=== PATIENT | female | born 1990 | race African-American/Black ===

== ENCOUNTER 2017-02-05 13:31 | Inpatient (IN) ==
[2017-02-05] MEDS ORDERED: MEPERIDINE 50 MG/1 ML VIAL IV PRN (14:27)
[2017-02-05] MEDS ORDERED: ONDANSETRON 4 MG/2 ML VIAL IV PRN (14:27)
[2017-02-05] MEDS ORDERED: OXYTOCIN/LR 20 UNIT/1,000 ML BAG IV SCH (14:30)
[2017-02-05] MEDS ORDERED: LACTATED RINGERS 1,000 ML IV SCH (14:30)
[2017-02-05] MEDS ORDERED: AMPICILLIN INJ 2,000 MG in SODIUM CHLORIDE 0.9% 100 ML IV ONE (14:39)
[2017-02-05 14:43] LABS: Basophils % 0.2 % (0.0-0.8); Eosinophils % 0.3 % (0.00-10.9); Hematocrit 36.6 VOL% (35.7-47.0); Hemoglobin 11.5 GM/DL (12.0-16.0); Immature Granulocytes % 5.9 %; Immature Granulocytes Absolute 0.76 #; Lymphocytes # 1.2 10*3/uL (1.4-4.0); Lymphocytes % 9.6 % (21.3-54.2); Mean Corpuscular HGB Conc 31.4 GM/DL (32-36); Mean Corpuscular Hemoglobin 31 PG (27-34); Mean Corpuscular Volume 97.9 FL (87-102); Mean Platelet Volume 10.6 FL (9.6-12.0); Monocytes % 7.9 % (1.7-12.7); Neutrophils # 9.8 10*3/uL (1.4-7.4); Neutrophils % 76.1 % (38.7-73.9); Platelet Count 176 T/CUMM (130-400); Red Blood Count 3.74 MC/CUMM (3.8-5.5); Red Cell Distribution Width 13.1 % (9.3-17.3); White Blood Count 12.9 T/CUMM (4-12)
[2017-02-05] MEDS ORDERED: fentaNYL 2 MCG/ROPIV 0.2% EPID 150 ML EPIDURAL SCH ×2 (14:50→19:16)
[2017-02-05] MEDS ORDERED: hydrOXYzine HCL 25 MG/1 ML VIAL IM PRN ×2 (14:50→19:16)
[2017-02-05] MEDS ORDERED: ePHEDrine 50 MG/ML AMP IV PRN ×2 (14:50→19:16)
[2017-02-05] MEDS ORDERED: diphenhydrAMINE 50 MG/1 ML VIAL IV PRN ×3 (14:50→19:16)
[2017-02-05] MEDS ORDERED: FAMOTIDINE 20 MG/2 ML VIAL IV ONE (14:50)
[2017-02-05] MEDS ORDERED: CITRIC ACID/SODIUM CITRATE 30 ML UDCUP PO ONE (14:50)
[2017-02-05 16:06] LABS: Lymphocytes 13 % (20-55); Platelet Estimate Normal; Segmented Neutrophils 83 % (50-85); Total Cells Counted 100
--- NOTE | 2017-02-05 17:40 | OB/GYN History & Physical ---
History of Present Illness Chief complaint: here for pitocin augmentation of labor. History of present illness: Ms. Tai is a 26 year old female that presents for augmentation of labor. Records available and reviewed. H&P is current, up to date, and presently on chart. Home Medications Medication Instructions Recorded Confirmed Type Multivitamin () [ 1 tablet PO DAILY 02/05/17 02/05/17 History Vitamin] Allergies Allergy/AdvReac Type Severity Reaction Status Date / Time No Known Allergies Allergy Verified 02/05/17 14:27 Medical,Surgical,& Family Hx - Family History Family History: Reports;: Family Hypertension (gf) Denies;: Family Anesthesia Reaction, Family Cancer, Family Diabetes, Family Heart Disease, Family Hematology, Family Psychiatric Problems, Family Stroke - Social History Smoking Status: Never smoker Frequency of Alcohol Use: None Type of Drug Use: None Results - Labs CBC & BMP: 02/05/17 14:36
--- NOTE | 2017-02-05 17:45 | OB/GYN Progress Note ---
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 States feels "some contractions" O: FHTs @ 140s with spontaneous variability, occasional variable deceleration noted, not repetitive UCs every 3-4 min/ 50-60 sec/ mild SVE 5 cm/ 80%/ -3 station Pitocin @ 8 mu/min A: IUP @ 40.1 wks, GBS positive, Category I FHR tracing, Pitocin augmentation of labor P: Continue with present management plan. Reposition for comfort. Offer analgesics. Questions answered to desired level of satisfaction. Dr. Baker aware of patient and plan of care and mutually agrees. Results - Labs CBC & BMP: 02/05/17 14:36
[2017-02-05] MEDS: AMPICILLIN INJ 1,000 MG in SODIUM CHLORIDE 0.9% 100 ML IV SCH ×2 (18:56→23:00)
[2017-02-05] MEDS ORDERED: PROMETHAZINE 25 MG/1 ML VIAL IM PRN (19:16)
[2017-02-05 21:16] LABS: Apearance,Urine CLEAR (Clear); Bilirubin,Urine Negative (Negative); Blood, Urine Negative (Negative); Glucose,Urine (UA) Negative (Negative); Ketones,Urine 5 mg/dL (Negative); Nitrite,Urine Negative (Negative); Protein,Urine Negative; RBC,Urine 1 /HPF (0-4); Urine Color Yellow (Yellow); Urine Specific Gravity 1.008 (1.001-1.035); Urine Urobilinogen < 2.0 EU/DL (0.2-1.0)
[2017-02-06 02:50] LABS: Cord Arterial Blood HCO3 19.9 MMOL/L
[2017-02-06 02:51] LABS: Cord Venous Blood HCO3 23.6 MMOL/L; Cord Venous Blood PCO2 45.3 MMHG; Cord Venous Blood PO2 22.5 MMHG
--- NOTE | 2017-02-06 02:52 | OB/GYN Progress Note ---
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 Anticipate vaginal delivery Exam TELEVISION ANNOUNCER - Constitutional Vitals: Vital Signs Temp Pulse Resp BP 02/06/17 00:00 97.6 F 85 18 95/60 02/05/17 20:00 97.8 F 78 18 99/58 Results - Labs CBC & BMP: 02/05/17 14:36
--- NOTE | 2017-02-06 02:58 | Operative Note ---
Date of procedure: 01/09/17 Pre-op diagnosis: IUP @ 40.1 wks, GBS Positive, Labor, Post Dates Post-op diagnosis: other () Procedure: Patient received in dorsal lithotomy position, prepped and draped. At 0218, Spontaneous delivery of head noted in direct OP position under an epidural anesthetic. Anterior the posterior shoulder delivered easily without difficulty. delivered in usual fashion and secured. Mouth and nose bulb suctioned with good tone and cry noted. Cord doubly clamped and cut. Cord gasses and cord blood obtained. Female dried, placed in radiant warmer and attended per nursery nurses. At 0220, spontaneous delivery of placenta via Saleem position- intact, normal cord insertion, 3 vessel cord noted, small calcifications present. Hemostasis maintained with fundal massage, bimanual compression, and Pitocin 20 units in 1000cc of LR. Uterine sweep with sponge performed- several small clots removed. Uterus firm. In and out cath performed using sterile technique, approximately 150 cc of clear yellow urine noted. First degree vaginal laceration noted and repaired with 3-0 Vicryl undyed x 2. Female with Apgars 9 and 9 weighing 7 pounds 2 ounces and mother will are stable. Mother desires to bottle feed. Anesthesia: epidural Surgeon / Physician: Etta Light Estimated blood loss: other (200) Specimens: other (placenta to pathology) Condition: stable Disposition: floor Results - Labs CBC & BMP: 02/05/17 14:36 Discharge Plan - Discharge Medications No Action Multivitamin () [ Vitamin] 1 tablet PO DAILY - Follow Up or Referral - Forms/Instructions
[2017-02-06] MEDS ORDERED: ACETAMINOPHEN 325 MG TABLET PO PRN (03:00)
[2017-02-06] MEDS ORDERED: LANOLIN 50% CREAM 0.3 OZ TUBE TOP PRN (03:00)
[2017-02-06] MEDS ORDERED: WITCH HAZEL PADS 100/JAR TOP PRN (03:00)
[2017-02-06] MEDS ORDERED: RHO(D) IMMUNE GLOBULIN 300 MCG SYRINGE IM ONE (03:00)
[2017-02-06] MEDS ORDERED: DIPH/TET/ACEL PERT BOOSTER VACCINE 0.5 ML VIAL IM ONE (03:00)
[2017-02-06] MEDS ORDERED: HYDROCORTISONE 2.5% RECTAL CREAM 30 GM TUBE TOP PRN (03:00)
[2017-02-06] MEDS ORDERED: OXYTOCIN/LR 20 UNIT/1,000 ML BAG IV ONE (03:00)
[2017-02-06] MEDS ORDERED: BISACODYL 10 MG SUPP RECTAL PRN (03:00)
[2017-02-06] MEDS ORDERED: oxyCODONE/ACETAMINOPHEN 5-325 MG TABLET PO PRN (03:00)
[2017-02-06] MEDS ORDERED: BENZOCAINE 20%/MENTHOL 0.5% SPRAY 56 GM CAN TOP PRN (03:00)
[2017-02-06] MEDS ORDERED: MEASLES/MUMPS/RUBELLA VACCINE 0.5 ML VIAL SUBCUT ONE (03:00)
[2017-02-06 06:07] LABS: Basophils % 0.2 % (0.0-0.8); Eosinophils % 0.2 % (0.00-10.9); Hematocrit 35.2 VOL% (35.7-47.0); Hemoglobin 11.3 GM/DL (12.0-16.0); Immature Granulocytes % 2.4 %; Immature Granulocytes Absolute 0.44 #; Lymphocytes # 0.9 10*3/uL (1.4-4.0); Lymphocytes % 4.8 % (21.3-54.2); Mean Corpuscular HGB Conc 32.1 GM/DL (32-36); Mean Corpuscular Hemoglobin 31 PG (27-34); Mean Corpuscular Volume 96.4 FL (87-102); Mean Platelet Volume 11.5 FL (9.6-12.0); Monocytes # 2.3 10*3/uL (0.11-0.8); Monocytes % 12.5 % (1.7-12.7); Neutrophils # 14.7 10*3/uL (1.4-7.4); Neutrophils % 79.9 % (38.7-73.9); Platelet Count 166 T/CUMM (130-400); Red Blood Count 3.65 MC/CUMM (3.8-5.5); Red Cell Distribution Width 13.2 % (9.3-17.3); White Blood Count 18.4 T/CUMM (4-12)
[2017-02-06] MEDS: IBUPROFEN 800 MG TABLET PO PRN (06:24)
[2017-02-06 06:25] LABS: Band Neutrophils 1 % (0-10); Eosinophils 1 % (0-10); Hypochromasia 1+; Lymphocytes 7 % (20-55); Platelet Estimate Normal; Segmented Neutrophils 79 % (50-85); Total Cells Counted 100
[2017-02-06] MEDS: FERROUS SULFATE 325 MG TABLET PO SCH ×3 (09:18→21:30)
[2017-02-06] MEDS: DOCUSATE SODIUM 100 MG CAPSULE PO SCH ×2 (09:18→21:30)
[2017-02-07] MEDS: IBUPROFEN 800 MG TABLET PO PRN ×2 (00:15→20:30)
[2017-02-07] MEDS: oxyCODONE/ACETAMINOPHEN 5-325 MG TABLET PO PRN (00:15)
[2017-02-07 07:49] LABS: Basophils # 0.1 10*3/uL (0.0-0.2); Basophils % 0.3 % (0.0-0.8); Eosinophils # 0.2 10*3/uL (0.0-0.87); Eosinophils % 1.5 % (0.00-10.9); Hematocrit 32.4 VOL% (35.7-47.0); Hemoglobin 10.3 GM/DL (12.0-16.0); Immature Granulocytes % 4.7 %; Immature Granulocytes Absolute 0.73 #; Lymphocytes # 1.9 10*3/uL (1.4-4.0); Lymphocytes % 12.1 % (21.3-54.2); Mean Corpuscular HGB Conc 31.8 GM/DL (32-36); Mean Corpuscular Hemoglobin 31 PG (27-34); Mean Corpuscular Volume 96.4 FL (87-102); Mean Platelet Volume 10.9 FL (9.6-12.0); Monocytes # 1.6 10*3/uL (0.11-0.8); Monocytes % 10.1 % (1.7-12.7); Neutrophils # 11.1 10*3/uL (1.4-7.4); Neutrophils % 71.3 % (38.7-73.9); Platelet Count 166 T/CUMM (130-400); Red Blood Count 3.36 MC/CUMM (3.8-5.5); White Blood Count 15.6 T/CUMM (4-12)
[2017-02-07 08:11] LABS: Band Neutrophils 3 % (0-10); Eosinophils 1 % (0-10); Hypochromasia 1+; Lymphocytes 16 % (20-55); Platelet Estimate Adequate; Segmented Neutrophils 75 % (50-85); Total Cells Counted 100
--- NOTE | 2017-02-07 09:18 | OB/GYN Progress Note ---
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 Denies any problems. The Mirena for her control method of choice. Exam SOAKERS SUPERVISOR - Constitutional Vitals: Vital Signs Temp Pulse Resp BP Pulse Ox 02/07/17 08:00 18 02/07/17 07:21 97.6 F 62 18 107/66 98 02/07/17 04:00 98.6 F 59 L 18 124/61 98 02/07/17 02:00 18 02/07/17 00:00 99.0 F 91 H 20 108/66 98 02/06/17 20:00 98.9 F 83 18 113/55 98 02/06/17 15:24 98.4 F 78 20 90/60 98 02/06/17 11:46 98.5 F 86 18 83/51 99 General appearance: normal weight, no acute distress - Antepartum / Post Post Exam Abdomen obstetrics: Present: bowel sounds normal Vagina: Present: normal moisture (intact, no edema noted, scant rubra noted on perineal pain) Uterus exam: Present: enlarged (firm, midline, 2 fingerbreadths below the umbilicus) Anus/Rectum: Present: normal perianal skin - Head Head exam: Present: normal inspection - ENT ENT exam: Present: normal exam, normal external ear exam - Neck Neck exam: Present: normal inspection, lymphadenopathy - Respiratory Respiratory exam: Present: clear to auscultation bilaterally - Breast Menstruation: other (scant rubra noted on a perineal pad no clots visualized) - Cardiovascular Cardiovascular exam: Present: regular rate and rhythm - GI/Abdominal GI/Abdominal exam: Present: normal bowel sounds - Extremities Exam Extremities exam: Present: normal inspection, normal capillary refill, full ROM - Back Exam Back exam: Present: normal inspection - Neurological Exam Neurological exam: Present: alert, oriented X3, normal gait - Psychiatric Psychiatric exam: Present: normal affect, normal mood - Skin Skin exam: Present: normal color, warm, dry Results - Labs CBC & BMP: 02/07/17 07:41 Labs: Laboratory Tests 02/05/17 02/05/17 02/05/17 14:36 14:36 20:25 WBC 12.9 H RBC 3.74 L Hgb 11.5 L Hct 36.6 MCV 97.9 MCH 31 MCHC 31.4 L RDW 13.1 Plt Count 176 MPV 10.6 Neut % (Auto) 76.1 H Lymph % (Auto) 9.6 L [place] % (Auto) 7.9 Eos % (Auto) 0.3 Baso % (Auto) 0.2 Neut # (Auto) 9.8 H Lymph # (Auto) 1.2 L [place] # (Auto) 1.0 H Eos # (Auto) 0.0 Baso # (Auto) 0.0 Total Counted 100 Immature Gran % 5.9 Nucleated RBC % 0.0 Immature Gran # 0.76 Segmented Neutrophils 83 Band Neutrophils Lymphocytes 13 L Monocytes 4 Eosinophils Nucleated RBCs # 0.00 Platelet Estimate Normal Hypochromasia Morphology Comment Cord ABG pH Cord ABG pCO2 Cord ABG pO2 Cord ABG HCO3 Cord ABG Total CO2 Cord ABG Base Excess Cord VBG pH Cord VBG pCO2 Cord VBG pO2 Cord VBG HCO3 Cord VBG Total CO2 Cord VBG Base Excess Urine Color Yellow Urine Appearance Clear Urine pH 7.0 Ur Specific [place] 1.008 Urine Protein Negative Urine Glucose (UA) Negative Urine Ketones 5 Urine Blood Negative Urine Nitrate Negative Urine Bilirubin Negative Urine Urobilinogen < 2.0 H Urine Leukocytes Negative Urine RBC 1 Ur Culture Indicated? Not indicated Blood Type O POSITIVE Antibody Screen Negative 02/06/17 02/06/17 02/06/17 02:10 02:10 05:54 WBC 18.4 H D RBC 3.65 L Hgb 11.3 L Hct 35.2 L MCV 96.4 MCH 31 MCHC 32.1 RDW 13.2 Plt Count 166 MPV 11.5 Neut % (Auto) 79.9 H Lymph % (Auto) 4.8 L [place] % (Auto) 12.5 Eos % (Auto) 0.2 Baso % (Auto) 0.2 Neut # (Auto) 14.7 H Lymph # (Auto) 0.9 L [place] # (Auto) 2.3 H Eos # (Auto) 0.0 Baso # (Auto) 0.0 Total Counted 100 Immature Gran % 2.4 Nucleated RBC % 0.0 Immature Gran # 0.44 Segmented Neutrophils 79 Band Neutrophils 1 Lymphocytes 7 L Monocytes 12 Eosinophils 1 Nucleated RBCs # 0.00 Platelet Estimate Normal Hypochromasia 1+ Morphology Comment Cord ABG pH 7.245 Cord ABG pCO2 60.1 Cord ABG pO2 13.6 Cord ABG HCO3 19.9 Cord ABG Total CO2 23.4 Cord ABG Base Excess -3.1 Cord VBG pH 7.334 Cord VBG pCO2 45.3 Cord VBG pO2 22.5 Cord VBG HCO3 23.6 Cord VBG Total CO2 25.0 Cord VBG Base Excess -2.5 Urine Color Urine Appearance Urine pH Ur Specific [place] Urine Protein Urine Glucose (UA) Urine Ketones Urine Blood Urine Nitrate Urine Bilirubin Urine Urobilinogen Urine Leukocytes Urine RBC Ur Culture Indicated? Blood Type Antibody Screen 02/07/17 07:41 WBC 15.6 H RBC 3.36 L Hgb 10.3 L Hct 32.4 L MCV 96.4 MCH 31 MCHC 31.8 L RDW 13.0 Plt Count 166 MPV 10.9 Neut % (Auto) 71.3 Lymph % (Auto) 12.1 L [place] % (Auto) 10.1 Eos % (Auto) 1.5 Baso % (Auto) 0.3 Neut # (Auto) 11.1 H Lymph # (Auto) 1.9 [place] # (Auto) 1.6 H Eos # (Auto) 0.2 Baso # (Auto) 0.1 Total Counted 100 Immature Gran % 4.7 Nucleated RBC % 0.0 Immature Gran # 0.73 Segmented Neutrophils 75 Band Neutrophils 3 Lymphocytes 16 L Monocytes 5 Eosinophils 1 Nucleated RBCs # 0.00 Platelet Estimate Adequate Hypochromasia 1+ Morphology Comment Cord ABG pH Cord ABG pCO2 Cord ABG pO2 Cord ABG HCO3 Cord ABG Total CO2 Cord ABG Base Excess Cord VBG pH Cord VBG pCO2 Cord VBG pO2 Cord VBG HCO3 Cord VBG Total CO2 Cord VBG Base Excess Urine Color Urine Appearance Urine pH Ur Specific [place] Urine Protein Urine Glucose (UA) Urine Ketones Urine Blood Urine Nitrate Urine Bilirubin Urine Urobilinogen Urine Leukocytes Urine RBC Ur Culture Indicated? Blood Type Antibody Screen
[2017-02-07] MEDS: FERROUS SULFATE 325 MG TABLET PO SCH ×3 (09:30→21:00)
[2017-02-07] MEDS: DOCUSATE SODIUM 100 MG CAPSULE PO SCH ×2 (09:30→21:00)
--- NOTE | 2017-02-07 11:47 | Pathology Report from [facility] ---
ACCESSION # : [id number] PATIENT NAME : Deborah Tai ORDERING DR : PAZ ROLDAN DO CLINICAL HX: IUP at 40 weeks POST-OP DX: Same SPECIMEN INFO: Placenta GROSS DESCRIPTION: The specimen is received fresh labeled with the patient's name Deborah Tai and "PLACENTA" consists of a 324 gram placenta which measures 16.0 x 15.5 x 1.8 cm. The membranes are pink martinez and translucent. The umbilical cord measure 17.0 cm, contains three vessels and is centrally inserted. The surface is blue melendez and intact. The maternal surface displays intact red melendez cotyledons with no abnormalities appreciated upon sectioning. Sections submitted A- membranes and cord, B- and maternal surfaces. DIAGNOSIS FOR DEBORAH TAI: PLACENTA, MEMBRANES, UMBILICAL CORD: Focal placental infarction, mild intervillous blood. Tri-vessel umbilical cord. Membranes with focal chronic inflammation and attached blood. SERVICE DATE: 02/06/2017 REPORT DATE: 02/07/2017 PATHOLOGIST: Fallon Hernandez M.D. [facility]ENTER[facility]i
--- NOTE | 2017-02-08 04:23 | Discharge Summary ---
Hospital Course - Hospital Course Hospital Course: Patient is a 26-year-old that was admitted for spontaneous labor and augmented with Pitocin. Labor progressed on an epidural anesthetic at 40.1 weeks gestation. She did receive ampicillin during labor for treatment of group beta strep. She proceeded to deliver a female infant with Apgars 9 and 9 weighing 7 lbs. 2 oz. Patient did experience a first degree vaginal laceration that was repair under an epidural anesthetic. Patient is bottlefeeding, she is stable, and she is being discharged home today. Baby is being discharged home today as well. Diagnosis - Discharge Diagnosis (1) Anemia Status: Acute (2) Normal spontaneous vaginal delivery Status: Resolved Specialty Discharge - Follow Up or Referrals Discharge Plan - Discharge Data Disposition: Home Health [facility] [place] Read Condition at Discharge: Stable Discharge Diet: advance to your usual diet Activity: resume usual activities as tolerated Hygiene: may shower Weight Bearing at Discharge: full weight bearing Driving: not for (2 weeks) Contact your physician if you experience:: fever over 101, Difficulty voiding, Redness or swelling, Nausea/Vomiting, Shortness of breath, Bleeding, pain uncontrolled by pain medications - Discharge Medications New Ferrous Sulfate Tab [Feosol Original Tab] 325 mg PO TID #90 tablet Ibuprofen Tab [Motrin Tab] 800 mg PO Q8H PRN #90 tablet PRN Reason: Pain Moderate (4-7) No Action Multivitamin () [ Vitamin] 1 tablet PO DAILY - Follow Up or Referral Follow Up: Etta Light CFNP [Advanced Practice Nurse] - 2 Weeks - Forms/Instructions Instructions: Perineal Care (DC), Vaginal Delivery (DC), Bleeding (DC) Exam - Constitutional Vitals: Period Temp Pulse Resp BP Sys/Vazquez Pulse Ox Last 24 Hr 97.6 F-98.7 F 57-91 18-18 99-114/55-66 98-99 General appearance: no acute distress - Head Head exam: Present: normal inspection - Eye Eye exam: Present: EOMI - ENT ENT exam: Present: normal exam, normal external ear exam - Neck Neck exam: Present: normal inspection - Respiratory Respiratory exam: Present: clear to auscultation bilaterally - Cardiovascular Cardiovascular exam: Present: regular rate and rhythm, other - GI/Abdominal GI/Abdominal exam: Present: normal bowel sounds, other (uterus firm, midline, 2 fingerbreadths below the umbilicus. Skin lochia noted on perineal pain, perineal intact) - Extremities Exam Extremities exam: Present: normal inspection, normal capillary refill, full ROM - Back Exam Back exam: Present: normal inspection - Neurological Exam Neurological exam: Present: alert, oriented X3, normal gait - Psychiatric Psychiatric exam: Present: normal affect, normal mood - Skin Skin exam: Present: normal color, warm, dry Discharge Results Procedures and tests throughout hospitalization: Laboratory Tests 02/05/17 02/05/17 02/05/17 14:36 14:36 20:25 WBC 12.9 H RBC 3.74 L Hgb 11.5 L Hct 36.6 MCV 97.9 MCH 31 MCHC 31.4 L RDW 13.1 Plt Count 176 MPV 10.6 Neut % (Auto) 76.1 H Lymph % (Auto) 9.6 L [place] % (Auto) 7.9 Eos % (Auto) 0.3 Baso % (Auto) 0.2 Neut # (Auto) 9.8 H Lymph # (Auto) 1.2 L [place] # (Auto) 1.0 H Eos # (Auto) 0.0 Baso # (Auto) 0.0 Total Counted 100 Immature Gran % 5.9 Nucleated RBC % 0.0 Immature Gran # 0.76 Segmented Neutrophils 83 Band Neutrophils Lymphocytes 13 L Monocytes 4 Eosinophils Nucleated RBCs # 0.00 Platelet Estimate Normal Hypochromasia Morphology Comment Cord ABG pH Cord ABG pCO2 Cord ABG pO2 Cord ABG HCO3 Cord ABG Total CO2 Cord ABG Base Excess Cord VBG pH Cord VBG pCO2 Cord VBG pO2 Cord VBG HCO3 Cord VBG Total CO2 Cord VBG Base Excess Urine Color Yellow Urine Appearance Clear Urine pH 7.0 Ur Specific [place] 1.008 Urine Protein Negative Urine Glucose (UA) Negative Urine Ketones 5 Urine Blood Negative Urine Nitrate Negative Urine Bilirubin Negative Urine Urobilinogen < 2.0 H Urine Leukocytes Negative Urine RBC 1 Ur Culture Indicated? Not indicated Blood Type O POSITIVE Antibody Screen Negative 02/06/17 02/06/17 02/06/17 02:10 02:10 05:54 WBC 18.4 H D RBC 3.65 L Hgb 11.3 L Hct 35.2 L MCV 96.4 MCH 31 MCHC 32.1 RDW 13.2 Plt Count 166 MPV 11.5 Neut % (Auto) 79.9 H Lymph % (Auto) 4.8 L [place] % (Auto) 12.5 Eos % (Auto) 0.2 Baso % (Auto) 0.2 Neut # (Auto) 14.7 H Lymph # (Auto) 0.9 L [place] # (Auto) 2.3 H Eos # (Auto) 0.0 Baso # (Auto) 0.0 Total Counted 100 Immature Gran % 2.4 Nucleated RBC % 0.0 Immature Gran # 0.44 Segmented Neutrophils 79 Band Neutrophils 1 Lymphocytes 7 L Monocytes 12 Eosinophils 1 Nucleated RBCs # 0.00 Platelet Estimate Normal Hypochromasia 1+ Morphology Comment Cord ABG pH 7.245 Cord ABG pCO2 60.1 Cord ABG pO2 13.6 Cord ABG HCO3 19.9 Cord ABG Total CO2 23.4 Cord ABG Base Excess -3.1 Cord VBG pH 7.334 Cord VBG pCO2 45.3 Cord VBG pO2 22.5 Cord VBG HCO3 23.6 Cord VBG Total CO2 25.0 Cord VBG Base Excess -2.5 Urine Color Urine Appearance Urine pH Ur Specific [place] Urine Protein Urine Glucose (UA) Urine Ketones Urine Blood Urine Nitrate Urine Bilirubin Urine Urobilinogen Urine Leukocytes Urine RBC Ur Culture Indicated? Blood Type Antibody Screen 02/07/17 07:41 WBC 15.6 H RBC 3.36 L Hgb 10.3 L Hct 32.4 L MCV 96.4 MCH 31 MCHC 31.8 L RDW 13.0 Plt Count 166 MPV 10.9 Neut % (Auto) 71.3 Lymph % (Auto) 12.1 L [place] % (Auto) 10.1 Eos % (Auto) 1.5 Baso % (Auto) 0.3 Neut # (Auto) 11.1 H Lymph # (Auto) 1.9 [place] # (Auto) 1.6 H Eos # (Auto) 0.2 Baso # (Auto) 0.1 Total Counted 100 Immature Gran % 4.7 Nucleated RBC % 0.0 Immature Gran # 0.73 Segmented Neutrophils 75 Band Neutrophils 3 Lymphocytes 16 L Monocytes 5 Eosinophils 1 Nucleated RBCs # 0.00 Platelet Estimate Adequate Hypochromasia 1+ Morphology Comment Cord ABG pH Cord ABG pCO2 Cord ABG pO2 Cord ABG HCO3 Cord ABG Total CO2 Cord ABG Base Excess Cord VBG pH Cord VBG pCO2 Cord VBG pO2 Cord VBG HCO3 Cord VBG Total CO2 Cord VBG Base Excess Urine Color Urine Appearance Urine pH Ur Specific [place] Urine Protein Urine Glucose (UA) Urine Ketones Urine Blood Urine Nitrate Urine Bilirubin Urine Urobilinogen Urine Leukocytes Urine RBC Ur Culture Indicated? Blood Type Antibody Screen Labs on day of discharge: Labs from last 24 hours 02/07/17 07:41 WBC 15.6 H RBC 3.36 L Hgb 10.3 L Hct 32.4 L MCV 96.4 MCH 31 MCHC 31.8 L RDW 13.0 Plt Count 166 MPV 10.9 Neut % (Auto) 71.3 Lymph % (Auto) 12.1 L [place] % (Auto) 10.1 Eos % (Auto) 1.5 Baso % (Auto) 0.3 Neut # (Auto) 11.1 H Lymph # (Auto) 1.9 [place] # (Auto) 1.6 H Eos # (Auto) 0.2 Baso # (Auto) 0.1 Total Counted 100 Immature Gran % 4.7 Nucleated RBC % 0.0 Immature Gran # 0.73 Segmented Neutrophils 75 Band Neutrophils 3 Lymphocytes 16 L Monocytes 5 Eosinophils 1 Nucleated RBCs # 0.00 Platelet Estimate Adequate Hypochromasia 1+ DS: Provider Date of admission: 02/05/17 13:31 Primary care physician: . No PCP Attending physician on admission: Candelario Baker DO Consults: 02/05/17 14:27 Consult to Anesthesiology [CONS] Routine Consulting Provider: Reason for Anesthesiology: Epidural Consult Comment: Epidural for pain managment 02/06/17 03:00 Consult to Subway Operator [CONS] Routine Consult Subway Operator: Breast Feeding Discharging clinician: HAZEL García
[2017-02-08 07:47] VITALS: BP 108/65
--- NOTE | 2017-02-08 08:33 | Anesthesia ---
Anesthesia Post OP - Post Ansesthetic Evaluation Patient seen in post op: Yes Resp: within normal limits CV: within normal limits Mental: within normal limits Temp: within normal limits [id number]: within normal limits Nausea and Vomiting: within normal limits Pain: within normal limits
[2017-02-08] MEDS: FERROUS SULFATE 325 MG TABLET PO SCH (09:16)
[2017-02-08] MEDS: DOCUSATE SODIUM 100 MG CAPSULE PO SCH (09:16)
[2017-02-08] MEDS: oxyCODONE/ACETAMINOPHEN 5-325 MG TABLET PO PRN (09:16)
[2017-02-08] MEDS: IBUPROFEN 800 MG TABLET PO PRN (09:17)
== END 2017-02-08 13:05 | disposition home or self-care (01) | DRG 775 ==
LOC: N.LD 13:31 → N.OB 02-06 04:19
PROVIDERS: ADMIT Obstetrics & Gynecology; ATTEND Obstetrics & Gynecology